=== PATIENT | female | born 1980 | race Two or more races ===

== ENCOUNTER 2023-09-27 19:32 | Inpatient (IN) | payer MEDICAID, OTHER ==
[~2023-09-27] VITALS: Ht 167.6 cm; Wt 73.5 kg
[2023-09-27 20:18] LABS: Basophils # (auto) 0 10 ^3/uL (0-0.2); Basophils % (auto) 0.3 % (0.0-2.0); Eosinophils # (auto) 0.1 10 ^3/uL (0-0.8); Eosinophils % (auto) 0.5 % (0.0-7.0); Hematocrit 35.3 % (36.0-46.0); Lymphocytes # (auto) 0.6 10 ^3/uL (0.4-5.4); Lymphocytes % (auto) 5.8 % (10.0-50.0); Mean Corpuscular Hemoglobin 31.8 pg (28.0-32.0); Mean Corpuscular Hgb Conc. 33.9 g/dL (32.0-36.0); Mean Corpuscular Volume 93.9 fL (80.0-100.0); Monocytes # (auto) 1.1 10 ^3/uL (0-1.3); Monocytes % (auto) 11.4 % (0.0-12.0); Neutrophils # (auto) 8.2 10 ^3/uL (1.6-8.6); Red Blood Cells 3.76 10^6/uL (4.0-5.20); Red Cell Distribution Width 12.7 % (11.8-14.3)
[2023-09-27 20:39] LABS: Alanine Aminotransferase 31 U/L (7-40); Alkaline Phosphatase 104 U/L (46-116); Anion Gap 10 (5-15); Aspartate Aminotransferase 37 U/L (13-40); BUN/Creatinine Ratio 9.2 (10.0-20.0); Blood Urea Nitrogen 11 mg/dL (9-23); Calcium 10.5 mg/dL (8.7-10.4); Carbon Dioxide 22 mmol/L (20-30); Chloride 102 mmol/L (98-107); Glucose 146 mg/dL (74-106); Lipase 30 U/L (12-53); Potassium 3.3 mmol/L (3.5-5.1); Sodium 134 mmol/L (136-145)
[2023-09-27 20:40] LABS: Bilirubin, Total 0.4 mg/dL (0.2-1.0); Total Protein 7.9 g/dL (5.7-8.2)
[2023-09-27 20:50] LABS: Urine Bacteria FEW /hpf (None Seen); Urine Blood 2+ /uL (Negative); Urine Clarity HAZY (Clear); Urine Color Brown (Yellow); Urine Mucus FEW (None Seen); Urine Protein, UAD 1+ (Negative); Urine Specific Gravity 1.027 (1.001-1.035); Urine WBC 22 /hpf (0 - 5); Urine pH 5.5 (5.0-8.0)
[2023-09-28] MEDS ORDERED: PIPERACILLIN-TAZOB 3.375GM 100 ML IV ONE (03:45)
[2023-09-28] MEDS ORDERED: LACTATED RINGER'S 1,000 ML IV ONE (03:45)
[2023-09-28] MEDS ORDERED: ONDANSETRON HCL 4 MG/2 ML VIAL IV ONE (03:45)
[2023-09-28] MEDS ORDERED: MORPHINE SULFATE 4 MG/ML SYR/VIAL IV ONE (03:45)
[2023-09-28] MEDS ORDERED: TEMAZEPAM 15 MG CAP PO PRN ×2 (06:45→17:45)
[2023-09-28] MEDS ORDERED: POTASSIUM CHL 20 Meq TABLET PO ONE (06:45)
[2023-09-28] MEDS ORDERED: ACETAMINOPHEN 325 MG TAB PO PRN (06:45)
[2023-09-28] MEDS ORDERED: ONDANSETRON HCL 4 MG/2 ML VIAL IV PRN (06:45)
[2023-09-28] MEDS: HYDROcodone-ACET 5/325MG TAB PO PRN ×3 (07:20→15:23)
[2023-09-28] MEDS: cefTRIAXone 1GM/50ML D5W 50 ML IV SCH (10:04)
[2023-09-28] MEDS: SODIUM CHLORIDE 0.9% 1,000 ML IV SCH ×2 (15:23→23:15)
[2023-09-28] MEDS ORDERED: ACETAMINOPHEN 500 MG TAB PO PRN (17:45)
[2023-09-28] MEDS ORDERED: DOCUSATE SOD 100 MG CAP PO PRN (17:45)
[2023-09-28 18:18] VITALS: BP 122/64; PULSE 76; RESP 18; TEMP 98; O2SAT 96
[2023-09-28 20:00] VITALS: PULSE 84; RESP 20; O2SAT 91
[2023-09-28 22:00] VITALS: BP 138/66; PULSE 84; RESP 20; TEMP 98.2; O2SAT 91
[2023-09-29] MEDS: ONDANSETRON HCL 4 MG/2 ML VIAL IV PRN ×2 (00:58→08:43)
[2023-09-29] MEDS: MORPHINE SULFATE INJ 2 MG/ml SYRG IV PRN ×2 (00:58→08:42)
[2023-09-29 05:00] VITALS: BP 122/73; PULSE 80; RESP 20; TEMP 98.2; O2SAT 96
[2023-09-29 06:57] LABS: Basophils # (auto) 0 10 ^3/uL (0-0.2); Basophils % (auto) 0.3 % (0.0-2.0); Eosinophils # (auto) 0.1 10 ^3/uL (0-0.8); Eosinophils % (auto) 1.7 % (0.0-7.0); Hematocrit 29.2 % (36.0-46.0); Hemoglobin 9.8 g/dL (12.2-16.2); Lymphocytes # (auto) 1.7 10 ^3/uL (0.4-5.4); Lymphocytes % (auto) 23.2 % (10.0-50.0); Mean Corpuscular Hemoglobin 31.9 pg (28.0-32.0); Mean Corpuscular Hgb Conc. 33.5 g/dL (32.0-36.0); Mean Corpuscular Volume 95.1 fL (80.0-100.0); Monocytes # (auto) 0.8 10 ^3/uL (0-1.3); Neutrophils # (auto) 4.6 10 ^3/uL (1.6-8.6); Neutrophils % (auto) 63.8 % (37.0-80.0); Nucleated Red Blood Cells % 0.1 %; Red Blood Cells 3.07 10^6/uL (4.0-5.20); Red Cell Distribution Width 12.6 % (11.8-14.3); White Blood Cell 7.2 10^3/uL (4.4-10.8)
[2023-09-29 07:03] LABS: Chloride 107 mmol/L (98-107); Potassium 3.6 mmol/L (3.5-5.1); Sodium 138 mmol/L (136-145)
[2023-09-29 07:04] LABS: Anion Gap 6 (5-15); Calcium 8.5 mg/dL (8.7-10.4); Carbon Dioxide 25 mmol/L (20-30)
[2023-09-29 07:09] LABS: BUN/Creatinine Ratio 10.8 (10.0-20.0); Blood Urea Nitrogen 8 mg/dL (9-23); Glucose 91 mg/dL (74-106)
[2023-09-29 07:45] VITALS: PULSE 64; RESP 16
[2023-09-29 08:35] VITALS: BP 133/82; PULSE 82; RESP 18; TEMP 97.9; O2SAT 98
[2023-09-29] MEDS: cefTRIAXone 1GM/50ML D5W 50 ML IV SCH (08:41)
[2023-09-29 12:35] VITALS: BP 122/73; PULSE 81; RESP 18; TEMP 98.2; O2SAT 96
[2023-09-29] MEDS ORDERED: CEFD300C2 PO (15:18)
[2023-09-29] MEDS ORDERED: PANT40TA2 PO (15:18)
[2023-09-29] MEDS ORDERED: TRAM50TA2 PO (15:18)
[2023-09-29 15:54] VITALS: BP 122/73; PULSE 81; RESP 18; TEMP 98.2; O2SAT 96
[2023-09-29 16:20] VITALS: BP 125/74; PULSE 72; RESP 18; TEMP 98.1; O2SAT 95
== END 2023-09-29 18:00 | disposition home or self-care (01) | DRG 463 ==
LOC: ER 19:32 → OVERFLOW 09-28 06:38 → WEST WING 09-28 17:56
PROVIDERS: ADMIT Nurse Practitioner; ATTEND Nurse Practitioner Acute Care
DX: N10 Acute pyelonephritis (principal); N17.9 Acute kidney failure, unspecified; E87.6 Hypokalemia; E83.52 Hypercalcemia; F17.210 Nicotine dependence, cigarettes, uncomplicated; K21.9 Gastro-esophageal reflux disease without esophagitis; D64.9 Anemia, unspecified
CPT/HCPCS: 36415; 74176; 80048; 80053; 81001; 83690; 85025; 87086; 96361; 96365; 96367; 96375; G0378; J2405; J2543